=== PATIENT | female | born 1970 | race Asian ===

== ENCOUNTER 2017-09-01 09:47 | Emergency (ER) | payer OTHER ==
[2017-09-01 10:03] VITALS: BP 125/65
[2017-09-01] MEDS ORDERED: DEXAMETHASONE 10 MG/ML VIAL PO STA (11:08)
--- NOTE | 2017-09-01 11:15 | ED Physician Documentation ---
PD HPI HEENT - Stated complaint Stated Complaint: THROAT PX/COUGH - Chief complaint Chief Complaint: Heent - History obtained from History obtained from: Patient, Family - History of Present Illness Timing - onset: Today Timing - duration: Hours Timing - details: Gradual onset, Still present Location: Throat Improves: Medication Worsens: Swalllowing Associated symptoms: Fever, Congestion, Headache, Cough Similar symptoms before: Has not had sx before Recently seen: Not recently seen - Additional information Additional information: 47-year-old mother of 2 has developed a sore throat this morning. She has a 7- year-old daughter who has been sick for 3 days with sore throat and fever who has a positive rapid strep. This morning in the emergency department. Review of Systems Constitutional: reports: Fever Eyes: denies: Decreased vision Ears: denies: Ear pain Nose: reports: Rhinorrhea / runny nose, Congestion Throat: reports: Sore throat Cardiac: denies: Chest pain / pressure, Palpitations Respiratory: reports: Cough. denies: Dyspnea GI: denies: Vomiting PD PAST MEDICAL HISTORY - Past Medical History Past Medical History: No - Past Surgical History Past Surgical History: No - Present Medications Home Medications: Ambulatory Orders Medication Instructions Recorded Confirmed Amoxicillin 875 mg PO BID #20 tablet 09/01/17 - Allergies Allergies/Adverse Reactions: Allergies Allergy/AdvReac Type Severity Reaction Status Date / Time No Known Drug Allergies Allergy Verified 09/01/17 10:02 - Social History Does the pt smoke?: No Smoking Status: Never smoker Does the pt drink ETOH?: No Does the pt have substance abuse?: No - Immunizations Immunizations are current?: Yes - POLST Patient has POLST: No PD ED PE NORMAL - Vitals Vital signs reviewed: Yes (Normal) - General General: Alert and oriented X 3, No acute distress, Well developed/nourished - HEENT HEENT: Atraumatic, PERRL, EOMI, Other (mild erythema to the left TM pharynx is with exudate and mild erythema ) - Neck Neck: Supple, no meningeal sign, No bony TTP - Cardiac Cardiac: RRR, No murmur - Respiratory Respiratory: No respiratory distress, Clear bilaterally - Abdomen Abdomen: Soft, Non tender - Back Back: No CVA TTP, No spinal TTP - Derm Derm: Normal color, Warm and dry, No rash - Extremities Extremities: No deformity, No edema - Neuro Neuro: No motor deficit, No sensory deficit Eye Opening: Spontaneous Motor: Obeys Commands Verbal: Oriented GCS Score: 15 - Psych Psych: Normal mood, Normal affect Results - Vitals Vitals: Vital Signs - 24 hr 09/01/17 10:00 Temperature 36.4 C L Heart Rate 65 Respiratory 97 H Rate Blood Pressure 125/65 O2 Saturation 95 Oxygen O2 Source Room air - Labs Labs: Laboratory Tests 09/01/17 10:15 Group A Strep Rapid Negative PD MEDICAL DECISION MAKING - ED course Complexity details: reviewed results, re-evaluated patient, considered differential, d/w patient, d/w family ED course: 47-year-old female with exposure to strep has a negative rapid strep and she does have symptoms. She is treated with 10 mg of dexamethasone and we will place her on some amoxicillin. Departure - Departure Disposition: 01 Home, Self Care Clinical Impression: Strep pharyngitis Condition: Stable Instructions: ED Strep Pharyngitis Poss Follow-Up: [facility] [Provider Group] Prescriptions: Amoxicillin 875 mg PO BID #20 tablet
== END 2017-09-01 11:31 | disposition home or self-care (01) ==
LOC: ED 09:47
DX: J02.0 Streptococcal pharyngitis (principal)
CPT/HCPCS: 87070; 87430; 99283

== ENCOUNTER 2017-10-12 09:15 | Emergency (ER) | payer OTHER ==
[2017-10-12] MEDS ORDERED: DEXAMETHASONE 10 MG/ML VIAL PO STA (10:14)
--- NOTE | 2017-10-12 10:16 | ED Physician Documentation ---
PD HPI HEENT - Stated complaint Stated Complaint: SORE THROAT,H/A - Chief complaint Chief Complaint: Heent - History obtained from History obtained from: Patient - History of Present Illness Timing - onset: How many days ago (2) Timing - duration: Days (2) Timing - details: Gradual onset, Still present Location: Right ear, Throat Improves: Medication Worsens: Swalllowing Associated symptoms: Fever, Congestion, Swollen nodes, Facial swelling, Headache. No: Cough Similar symptoms before: Diagnosis (pharyngitis) Recently seen: Emergency Dept - Additional information Additional information: 47-year-old female has developed acute sore throat fever and right ear pain for the past 2 days. She has been taking some Tylenol she continues to have the sore throat and has a lot of swelling in the right side of her neck. She was seen in the emergency department here 6 weeks ago with a sore throat and was placed on amoxicillin for 10 days. She states that she had resolution of her symptoms at the time and at that time she had been exposed to her son who would had a positive rapid strep. Her rapid strep that time was negative and her culture grew mixed christina. Review of Systems Constitutional: reports: Fever, Chills, Myalgias Eyes: denies: Decreased vision Ears: reports: Ear pain Nose: reports: Rhinorrhea / runny nose, Congestion Throat: reports: Sore throat Cardiac: denies: Chest pain / pressure, Palpitations Respiratory: denies: Dyspnea, Cough GI: denies: Abdominal Pain, Nausea, Vomiting, Constipation, Diarrhea : denies: Dysuria PD PAST MEDICAL HISTORY - Past Medical History Past Medical History: No - Past Surgical History Past Surgical History: No - Present Medications Home Medications: Ambulatory Orders Medication Instructions Recorded Confirmed Amoxicillin 875 mg PO BID #20 tablet 10/12/17 - Allergies Allergies/Adverse Reactions: Allergies Allergy/AdvReac Type Severity Reaction Status Date / Time No Known Drug Allergies Allergy Verified 10/12/17 09:31 - Social History Does the pt smoke?: No Smoking Status: Never smoker Does the pt drink ETOH?: No Does the pt have substance abuse?: No - Immunizations Immunizations are current?: Yes - POLST Patient has POLST: No PD ED PE NORMAL - Vitals Vital signs reviewed: Yes (Normal) - General General: Alert and oriented X 3, No acute distress, Well developed/nourished - HEENT HEENT: Atraumatic, PERRL, EOMI, Other (There is erythema and flattening of landmarks in the right the left is with more dense erythema and distortion of landmarks the pharynx is with 2+ exudative tonsils with crypts and more swelling and erythema on the right than the left.) - Neck Neck: Supple, no meningeal sign, No bony TTP, Other (There is marked tender submandibular adenopathy on the right side) - Cardiac Cardiac: RRR, No murmur - Respiratory Respiratory: No respiratory distress, Clear bilaterally - Abdomen Abdomen: Soft, Non tender - Back Back: No CVA TTP, No spinal TTP - Derm Derm: Normal color, Warm and dry, No rash - Extremities Extremities: No deformity, No edema - Neuro Neuro: Alert and oriented X 3, nocturnist 2-12 intact, No motor deficit, No sensory deficit, Normal speech Eye Opening: Spontaneous Motor: Obeys Commands Verbal: Oriented GCS Score: 15 - Psych Psych: Normal mood, Normal affect Results - Vitals Vitals: Vital Signs - 24 hr 10/12/17 10/12/17 09:30 11:00 Temperature 36.8 C 37.5 C Heart Rate 84 77 Respiratory 16 18 Rate Blood Pressure 103/64 121/68 O2 Saturation 98 99 Oxygen O2 Source Room air - Labs Labs: Laboratory Tests 10/12/17 10:17 Group A Strep Rapid POSITIVE H PD MEDICAL DECISION MAKING - ED course Complexity details: reviewed results, re-evaluated patient, considered differential, d/w patient ED course: 47-year-old female with sore throat and fever has a positive rapid strep this time. She has had recent strep. She is administered dexamethasone and we will place her back onto the amoxicillin. Departure - Departure Disposition: 01 Home, Self Care Clinical Impression: Strep pharyngitis Condition: Stable Instructions: ED Strep Pharyngitis Conf Follow-Up: [facility] [Provider Group] Prescriptions: Amoxicillin 875 mg PO BID #20 tablet Discharge Date/Time: 10/12/17 11:00
[2017-10-12] MEDS ORDERED: CHERRY SYRUP 10 ML UDC PO ONE (10:31)
[2017-10-12 11:01] VITALS: BP 121/68
== END 2017-10-12 11:00 | disposition home or self-care (01) ==
LOC: ED 09:15
DX: J02.0 Streptococcal pharyngitis (principal)
CPT/HCPCS: 87430; 99283; A9270

== ENCOUNTER 2019-05-20 22:00 | Emergency (ER) | payer OTHER ==
--- NOTE | 2019-05-20 22:55 | ED Physician Documentation ---
History of Present Illness - Stated complaint Stated Complaint: VISION LOSS, DIZZY, CHEST PX - Chief complaint Chief Complaint: Neuro - History obtained from History obtained from: Patient - History of Present Illness Timing: Enter time (20:00), Today Pain level max: 8 Pain level now: 1 Improved by: nothing Worsened by: no exacerbating factors - Additonal information Additional information: at approximately 8 PM tonight while at rest at home, patient had sudden onset visual changes, bilateral flashing and colorful lines. she also experienced intermittent visual loss of the right field of vision in both eyes. her visual symptoms have nearly resolved except for occasional and brief colorful flashes in periphery of vision. as the visual changes improved, she developed severe generalized headache with mild nausea. denies weakness, numbness, denies recent injury, denies h/o similar symptoms. her headache has significantly improved. Review of Systems Constitutional: reports: Reviewed and negative Eyes: denies: Loss of vision (partial field cut (by description; resolved STAFF PHYSICAL THERAPY ASSISTANT)) Cardiac: reports: Reviewed and negative Respiratory: reports: Reviewed and negative GI: reports: Nausea. denies: Abdominal Pain, Vomiting Musculoskeletal: denies: Neck pain Neurologic: reports: Headache. denies: Generalized weakness, Focal weakness, Numbness, Head injury, LOC PD PAST MEDICAL HISTORY - Past Medical History Past Medical History: No - Past Surgical History Past Surgical History: No - Present Medications Home Medications: Ambulatory Orders Medication Instructions Recorded Confirmed Amoxicillin 875 mg PO BID #20 tablet 10/12/17 SUMAtriptan [Imitrex] 25 mg PO ONCE PRN #20 tablet 05/21/19 - Allergies Allergies/Adverse Reactions: Allergies Allergy/AdvReac Type Severity Reaction Status Date / Time No Known Drug Allergies Allergy Verified 05/20/19 22:10 - Social History Does the pt smoke?: No Smoking Status: Never smoker Does the pt drink ETOH?: No Does the pt have substance abuse?: No - Immunizations Immunizations are current?: Yes Immunizations: TDAP current <10years - POLST Patient has POLST: No PD ED PE NORMAL - Vitals Vital signs reviewed: Yes - General General: Alert and oriented X 3, No acute distress, Well developed/nourished - HEENT HEENT: PERRL, EOMI, Moist mucous membranes - Neck Neck: Supple, no meningeal sign - Cardiac Cardiac: RRR, No murmur - Respiratory Respiratory: No respiratory distress, Clear bilaterally - Abdomen Abdomen: Soft, Non tender - Derm Derm: Normal color, Warm and dry - Neuro Neuro: Alert and oriented X 3, 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, No motor deficit, No sensory deficit, Normal speech, Other (visual [place] intact (both eyes and tested individually)) Eye Opening: Spontaneous Motor: Obeys Commands Verbal: Oriented GCS Score: 15 - Psych Psych: Normal mood, Normal affect PD ED PE EXPANDED - Eyes Eyes: PERRL, Normal accommodation, EOMI, Nl conjunctiva/sclera, Anterior chambers clear, Normal fundi (using panophthalmoscope), Temp arteries nontender Results - Vitals Vitals: Oxygen O2 Source Room air - Labs Labs: Laboratory Tests 05/20/19 05/20/19 23:55 23:55 WBC 7.1 RBC 4.07 L Hgb 12.5 Hct 38.0 MCV 93.4 MCH 30.7 MCHC 32.9 RDW 12.2 Plt Count 274 MPV 8.7 Neut # (Auto) 5.2 Lymph # (Auto) 1.3 L Gage # (Auto) 0.4 Eos # (Auto) 0.1 Baso # (Auto) 0.0 Absolute Nucleated RBC 0.00 Nucleated RBC % 0.0 Sodium 137 Potassium 3.5 Chloride 103 Carbon Dioxide 25 Anion Gap 9.0 BUN 10 Creatinine 0.6 Estimated GFR (MDRD) 107 Glucose 119 H Calcium 8.8 - Rads (name of study) CT head Radiology: Prelim report reviewed, See rad report PD MEDICAL DECISION MAKING - ED course Complexity details: reviewed results, re-evaluated patient, considered differential, d/w patient, d/w family ED course: description of event (HPI) s/o occular/ophthalmic migraine, and test results do not suggest alternative diagnosis. she is comfortable with discharge, will trial on imitrex and return if symptoms recur, but follow up with PMD even if asymptomatic, as she might benefit from further testing and/or specialist consult Departure - Departure Disposition: 01 Home, Self Care Clinical Impression: Ophthalmic migraine Condition: Good Instructions: ED Headache Migraine Follow-Up: [facility] [Provider Group] Prescriptions: SUMAtriptan [Imitrex] 25 mg PO ONCE PRN #20 tablet PRN Reason: Headache Discharge Date/Time: 05/21/19 01:34
[2019-05-21 00:01] LABS: BASOPHILS % (AUTO) 0.6 %; EOSINOPHILS # (AUTO) 0.1 10^3/uL (0.0-0.7); EOSINOPHILS % (AUTO) 1.1 %; HGB - HEMOGLOBIN 12.5 g/dL (12.0-16.0); LYMPHOCYTES # (AUTO) 1.3 10^3/uL (1.5-3.5); LYMPHOCYTES % (AUTO) 18.4 %; MEAN CORPUSCULAR HEMOGLOBIN 30.7 pg (27.0-31.0); MEAN CORPUSCULAR HGB CONC 32.9 g/dL (32.0-36.0); MEAN CORPUSCULAR VOLUME 93.4 fL (81.0-99.0); MEAN PLATELET VOLUME 8.7 fL (7.9-10.8); MONOCYTES # (AUTO) 0.4 10^3/uL (0.0-1.0); MONOCYTES % (AUTO) 5.9 %; NEUTROPHILS # (AUTO) 5.2 10^3/uL (1.5-6.6); NEUTROPHILS % (AUTO) 73.6 %; PLT - PLATELET COUNT 274 10^3/uL (130-450); RED BLOOD COUNT 4.07 10^6/uL (4.20-5.40); RED CELL DISTRIBUTION WIDTH 12.2 % (12.0-15.0); WHITE BLOOD COUNT 7.1 x10^3/uL (4.8-10.8)
--- NOTE | 2019-05-21 00:04 | CT Report ---
Reason: CALL, visual changes Procedure Date: 05/20/2019 Accession Number: [id number] / [id number] Procedure: CT - HEAD WO CPT Code: FULL RESULT: EXAM: CT HEAD EXAM DATE: 05/20/2019 11:49 PM. CLINICAL HISTORY: CALL, visual changes. COMPARISON: None. TECHNIQUE: Multiaxial CT images were obtained from the foramen magnum to the vertex. Reformats: Sagittal and coronal. IV contrast: None. In accordance with CT protocol optimization, one or more of the following dose reduction techniques were utilized for this exam: automated exposure control, adjustment of mA and/or KV based on patient size, or use of iterative reconstructive technique. FINDINGS: Parenchyma: No intraparenchymal hemorrhage. No evidence of mass, midline shift, or CT findings of infarction. Jaramillo-white differentiation is distinct. Small nonspecific extra-axial calcification along falx and right parietal region. Extraaxial Spaces: Normal for age. No subdural or epidural collections identified. Ventricles: Normal in size and position. Sinuses and Orbits: Imaged paranasal sinuses, orbits, and mastoids show no significant abnormality. Bones: No evidence of fracture or calvarial defect. Other: None. IMPRESSION: No acute intracranial abnormality. [facility]
[2019-05-21 00:08] LABS: CALCIUM 8.8 mg/dL (8.5-10.3); CREATININE 0.6 mg/dL (0.4-1.0)
[2019-05-21] MEDS ORDERED: SUMAtriptan 25 MG TABLET PO STA (01:09)
[2019-05-21 01:28] VITALS: BP 113/61
== END 2019-05-21 01:34 | disposition home or self-care (01) ==
LOC: ED 22:00
DX: G43.B0 Ophthalmoplegic migraine, not intractable (principal)
CPT/HCPCS: 36415; 70450; 80048; 85025; 93005; 99283; 99284; A9270